=== PATIENT | female | born 1970 | race Caucasian/White ===

== ENCOUNTER 2017-07-13 05:39 | Observation (INO) | payer BC ==
[2017-07-12 12:24] LABS: HEMOGLOBIN 13.1 g/dL (12.0-16.0)
[2017-07-12 12:25] LABS: HEMATOCRIT 39.4 % (36.0-48.0)
[~2017-07-13] VITALS: Ht 162.6 cm; Wt 98.4 kg
--- NOTE | ~2017-07-13 | OP ---
Record Of [facility] [address] [place]. [address] NAME: VEDA SANDOVAL : 66 STATUS : ADM Ozzy PAT#: [id number] AGE: 47 ADM/REG DATE : 07/13/17 MR#: [id number] REPORT SERV DATE: 07/13/17 DICTATED BY: VERNON DIETRICH II DATE: 07/13/17 REPORT STATUS : Draft TRANSCRIBED BY: [email or web address] DATE: 07/13/17 DATE OF PROCEDURE: 07/13/2017 PREOPERATIVE DIAGNOSES: 1. Left lower extremity radiculopathy. 2. Stenosis at L5-S1 with partially calcified disk protrusion. POSTOPERATIVE DIAGNOSES: 1. Left lower extremity radiculopathy. 2. Stenosis at L5-S1 with partially calcified disk protrusion. 3. Small soft fragment of disk compressing the S1 nerve root. 4. Acquired central and lateral recess stenosis. PROCEDURES: 1. L5-S1 laminectomy. 2. Use of the microscope and stereotactic spinal imaging. FLUIDS: 1300 mL LR. ESTIMATED BLOOD LOSS: 15 mL. DRAINS: One drain. COMPLICATIONS: None. ANTIBIOTIC: Preoperatively. PREOPERATIVE HISTORY: A very friendly 47-year-old female, who works at [employer], who reports some back pain, but also reports significant radiating pain primarily in the left buttock and the left leg. She was found to have a degree of central and lateral recess stenosis at L5-S1. There is also a calcified piece of disk which I did not believe overall was that compressive. We discussed the pros and cons of the surgery. We discussed the risks which include, but not limited to infection, abscess, CSF leak, instability, and need for future operations. DESCRIPTION OF PROCEDURE: After informed consent was obtained, the patient was brought to the operating room at her request, and general anesthesia was achieved. She was placed in prone position. The back was prepped and draped in a sterile fashion. The stereotactic spinal pin was placed into the right iliac crest and the intraoperative CT scan completed. The stereotactic guidance was then used throughout the remainder of the case. The microscope now in place. Under microscopic visualization, the incision was made and the quadrant retractor was placed in a minimally invasive fashion. At this point, we were able to rotate the table to assist with visualization. We also placed the medial to lateral blades for increasing the visualization and lighting. Record Of [facility] [address] [place]. [address] NAME: VEDA SANDOVAL : 66 STATUS : ADM Ozzy PAT#: [id number] AGE: 47 ADM/REG DATE : 07/13/17 MR#: [id number] REPORT SERV DATE: 07/13/17 DICTATED BY: VERNON DIETRICH II DATE: 07/13/17 REPORT STATUS : Draft TRANSCRIBED BY: OMI DATE: 07/13/17 Next, the high-speed kasey was used to thin the lamina and the spinal laminar junction was taken down. The unilateral approach was now exploited to perform a bilateral decompression. Ligamentum flavum was removed bilaterally. Next, the portions of the facet were now removed on the left. Approximately 25% of the joint was removed. This allowed identification of the S1 nerve root. At this point, the central stenosis had been alleviated including the bilateral recess stenosis. Next, the S1 nerve root was then retracted and the calcified protrusion noted. However, we did see a small soft disk herniation. This was removed. This also assisted with the decompression of the S1 nerve root. The area was now irrigated. Hemostasis was achieved except for some mild cancellous bone bleeding. The patient had been on significant amount of pain medications preoperatively. I felt the best course of action was to keep her for observation and pain control overnight. Therefore, I went ahead and placed a drain. Standard closure was then performed over a drain including standard dressing application. The patient was pending extubation and transfer. I spoke with her postoperatively and advised him that the surgery had gone well and we had decompressed the nerve roots acceptably. We also discussed again the hospitalization overnight and restrictions going forward for the next six weeks. EDEN/OMI Vernon Dietrich II, M.D. / [id number] CC: Myra Fenton II, M.D.
[~2017-07-13 05:39] MED LIST: ASA5GR PO; HYZAAR 50/12.51 TAB PO; IMDUR30 PO; NORV10 PO; PCET PO; PHENERGAN PO; PRILOSEC OTC20 MG PO; ULTRAM50 PO; X5 PO; ZOFRAN PO; ZOFRAN4 PO
[2017-07-14] MEDS ORDERED: V5 PO (10:48)
[2017-07-14] MEDS ORDERED: MSCONT15 PO (10:48)
[2017-07-14] MEDS ORDERED: ROXICODONE15 MG PO (10:48)
== END 2017-07-14 11:42 | disposition home or self-care (01) ==
LOC: ENRESERV → ENRESERVTM → ENRESERVDT → SDC 05:39 → PACU 09:48 → 3SO 12:05 → SDC 12:30 → 3SO 07-14 11:42
PROVIDERS: Orthopaedic Surgery
PROC: 01NB0ZZ Release Lumbar Nerve, Open Approach (ICD-10-PCS; 2017-07-13)
PROC: 0SB20ZZ Excision of Lumbar Vertebral Disc, Open Approach (ICD-10-PCS; principal; 2017-07-13 07:00)
DX: M51.17 Intervertebral disc disorders with radiculopathy, lumbosacral region (principal); M48.07 Spinal stenosis, lumbosacral region; G43.909 Migraine, unspecified, not intractable, without status migrainosus; I10 Essential (primary) hypertension; F41.9 Anxiety disorder, unspecified; M79.7 Fibromyalgia; Z91.013 Allergy to seafood; Z79.899 Other long term (current) drug therapy; Z90.710 Acquired absence of both cervix and uterus; Z98.890 Other specified postprocedural states
CPT/HCPCS: 82962; 85014; 85018; 88304; 88311; 96374; 96376; 97116-GP; 97161-GP; A9270-GY; G0378; J0690; J1170; J1885; J2250; J2405; J2710; J3010